=== PATIENT | female | born 1995 | race Caucasian/White ===

== ENCOUNTER 2016-06-10 09:43 | Emergency (ER) | payer BC ==
[2016-06-10 09:53] VITALS: TEMP 97.3; O2SAT 97
--- NOTE | 2016-06-10 11:29 | EDPHY ---
H & P Stated Complaint: N/V/D since yesterday;felt lightheaded Time Seen by Provider: 06/10/16 11:13 HPI/ROS: CHIEF COMPLAINT: Near syncope HISTORY OF PRESENT ILLNESS: The patient is a 20 year old female with recent diagnosis of Gastroparesis, who presents to the ED with vomiting and near syncopal episode. The patient reports that she ate rice and an orange last night and shortly after started vomiting. She had multiple episodes of emesis through the night. This morning vomiting has subsided, but she continued to feel nauseous. When she got up to use the bathroom she felt near syncopal. She became dizzy, hot, and lightheaded, but did not faint. She drank Pedialyte and felt better. She denies chest pain, palpitations, or shortness of breath. The patient additionally complains of difficulty swallowing. She states it is difficult for her to swallow her medication because it feels like it gets stuck in her esophagus. REVIEW OF SYSTEMS: Aside from elements discussed in the HPI, a comprehensive 10-point review of systems was reviewed and is negative. PAST MEDICAL HISTORY: Gastroparesis SOCIAL HISTORY: [employer] student. VITAL SIGNS: Reviewed by me GENERAL: Well-developed, well-nourished, resting comfortably in no respiratory distress. HEENT: Atraumatic. Eyes: No icterus, no injection. Mouth: moist mucous membranes. No erythema or lesions. Neck: supple with no adenopathy. LUNGS: Clear to auscultation bilaterally, no wheezes, rhonchi or rales. CARDIAC: Regular rate and rhythm, no rubs, murmurs or gallops. ABDOMEN: Soft, nontender, nondistended, bowel sounds normal. BACK: No CVA tenderness. EXTREMITIES: No trauma. No edema. Range of motion is normal throughout. NEURO: Alert and oriented, grossly nonfocal. SKIN: Warm and dry, no rash. PSYCHIATRIC: Normal mentation, no agitation. Portions of this note were transcribed by a medical billing associate. I personally performed a history, physical exam, medical decision making, and confirmed accuracy of information the transcribed note. - Personal History LMP (Females 10-55): Extended Cycle BCP/Inj Current Tetanus Diphtheria and Acellular Pertussis (TDAP): Yes - Medical/Surgical History Hx Asthma: Yes Hx Chronic Respiratory Disease: No Hx Diabetes: No Hx Cardiac Disease: No Hx Renal Disease: No Hx Cirrhosis: No Hx Alcoholism: No Hx HIV/AIDS: No Hx Splenectomy or Spleen Trauma: No Other PMH: PMH: asthma, gastroparesis. PSH: none - Social History Smoking Status: Never smoked Constitutional: Initial Vital Signs Temperature (C) 36.3 C 06/10/16 09:50 Heart Rate 98 06/10/16 09:50 Respiratory Rate 16 06/10/16 09:50 Blood Pressure 113/72 06/10/16 09:50 O2 Sat (%) 97 06/10/16 09:50 O2 Delivery Mode Room Air Allergies/Adverse Reactions: No Known Allergies Allergy (Verified 06/10/16 09:50) Home Medications: Medication Instructions Recorded Omeprazole 07/16/15 Noreth A-Et Estra/Fe Fumarate 1 each PO 06/10/16 [Loestrin 24 Fe Tablet] Ondansetron Odt [Zofran Odt 4 mg 4 mg PO Q6 PRN #8 tab 06/10/16 (RX)] Medical Decision Making ED Course/Re-evaluation: 20 year old with vomiting and near syncope. Better in ED. Reasurring labs and not . Taking POs in ED without vomiting. Feel ok to DC with precautions. Differential Diagnosis: Diff dx of patinet presenting complaints considered including but not limited to vasovagal syncope, arrhythmia, dehydration, and blood loss. - Data Points Laboratory Results: Laboratory Results 06/10/16 11:20 06/10/16 11:20 Medications Given: Discontinued Medications Ondansetron HCl (Zofran) 4 mg IVP EDNOW ONE Stop: 06/10/16 11:44 Last Admin: 06/10/16 12:17 Dose: 4 mg Departure - Departure Disposition: Home, Routine, Self-Care Clinical Impression: Vomiting, Vasovagal near-syncope Condition: Good Instructions: Acute Nausea and Vomiting (ED), Near Syncope (ED) Additional Instructions: 1. For your vomiting, I suggested you start with a bland diet and advance as tolerated. This means start with clear liquids such as water, Gatorade, juice, flat non- caffeinated soda. If you tolerate clear liquids, then you may add bland foods such as bananas, rice, or toast. If you do not have any worsening of your symptoms, you may begin to resume a regular diet. 2. Continue taking your Omeprazole. 3. Call the molded goods embossing press operator today to arrange a followup appointment. Be sure to mention that you were in the emergency department today. 4. Okay to use Zofran if needed for ongoing nausea and vomiting. 5. Pt is excused from all school related events through 06/12 Referrals: Carlton Ann MD, FACG [Medical Doctor] - As per Instructions Stand Alone Forms: School Excuse Prescriptions: Ondansetron Odt [Zofran Odt 4 mg (RX)] 4 mg PO Q6 PRN #8 tab PRN Reason: Nausea Report Scribed for: Donna Basurto Report Scribed by: Ophelia Sauer Date of Report: 06/10/16 Time of Report: 11:42
[2016-06-10] MEDS ORDERED: ONDANSETRON 4 MG/2 ML VIAL IVP ONE (11:43)
[2016-06-10 11:46] LABS: % IMMATURE GRANULYOCYTES 0.2 % (0.0-1.1); ABSOLUTE IMMATURE GRANULOCYTES 0.01 10^3/uL (0.00-0.10); ADD DIFF? NO; ADD MORPH? NO; ADD SCAN? NO; ATYPICAL LYMPHOCYTE FLAG 10 (0-99); FRAGMENT RBC FLAG 0 (0-99); HEMOGLOBIN 16.1 g/dL (12.6-16.3); LEFT SHIFT FLG 30 (0-99); LIPEMIA HEMOLYSIS FLAG 90 (0-99); MEAN CELL HEMOGLOBIN 29.7 pg (27.9-34.1); MEAN CELL HEMOGLOBIN CONCENTR. 34.3 g/dL (32.4-36.7); MEAN CELL VOLUME 86.6 fL (81.5-99.8); MEAN PLATELET VOLUME 9.9 fL (8.7-11.7); PLATELET CLUMPS FLAG 0 (0-99); PLATELET COUNT 244 10^3/uL (150-400); RED BLOOD CELL COUNT 5.43 10^6/uL (4.18-5.33); RED CELL DISTRIBUTION WIDTH 11.9 % (11.5-15.2)
[2016-06-10 11:54] LABS: ANION GAP 11 mEq/L (8-16); CALCIUM 9.3 mg/dL (8.5-10.4); CARBON DIOXIDE 25 mEq/l (22-31); CHLORIDE 105 mEq/L (97-110); CREATININE 0.8 mg/dL (0.6-1.0); GLOMERULAR FILTRATION RATE > 60; GLUCOSE 98 mg/dL (70-100); POTASSIUM 4.3 mEq/L (3.5-5.2); SODIUM 141 mEq/L (134-144)
[2016-06-10 12:58] VITALS: BP 112/75; PULSE 85; RESP 18
== END 2016-06-10 12:56 | disposition home or self-care (01) ==
DX: R55 Syncope and collapse (principal); R11.10 Vomiting, unspecified; J45.909 Unspecified asthma, uncomplicated
CPT/HCPCS: 96374; J2405